=== PATIENT | female | born 1945 | race Two or more races ===

== ENCOUNTER 2022-09-03 17:03 | Inpatient (IN) | payer OTHER ==
[~2022-09-03] VITALS: Ht 162.6 cm; Wt 70.3 kg
[2022-09-03] MEDS ORDERED: RESTORIL15 MG PO (17:11)
[2022-09-03] MEDS ORDERED: ROSUVASTATIN CA10 MG PO (17:11)
[2022-09-03] MEDS ORDERED: GABAPENTIN600 MG PO (17:11)
[2022-09-03] MEDS ORDERED: SERTRALINE HCL25 MG PO (17:11)
[2022-09-03] MEDS ORDERED: LOSARTAN POTAS100 MG PO (17:11)
[2022-09-03] MEDS ORDERED: MONTELUKAST SOD10 MG PO (17:11)
[2022-09-03] MEDS ORDERED: LEVO-T25 MCG PO (17:11)
[2022-09-03] MEDS ORDERED: PEPCID AC10 MG PO (17:13)
[2022-09-03] MEDS ORDERED: PANTOPRAZOLE SO40 MG PO (17:14)
[2022-09-06] MEDS ORDERED: BREO ELLIPTA 21 EACH (14:32)
[2022-09-06] MEDS ORDERED: IBANDRONATE SO150 MG (14:32)
[2022-09-06] MEDS ORDERED: DICLOFENAC POTA50 MG (14:32)
[2022-09-06] MEDS ORDERED: TRIAMCINOLONE16.9 ML (14:33)
[2022-09-06] MEDS ORDERED: AZELASTINE137 MCG/0. (14:33)
[2022-09-06] MEDS ORDERED: METAXALONE800 MG (14:33)
[2022-09-06] MEDS ORDERED: ANASTROZOLE1 MG (14:33)
[2022-09-06] MEDS ORDERED: NAPROXEN500 MG (14:33)
[2022-09-14] MEDS ORDERED: TRAM1TAB98 PO (10:42)
== END 2022-09-14 14:22 | disposition home or self-care (01) | DRG 336 ==
LOC: ER 17:03 → SURG 09-04 00:07
PROVIDERS: Surgery; ADMIT Surgery; ATTEND Surgery
PROC: BW21YZZ Computerized Tomography (CT Scan) of Abdomen and Pelvis using Other Contrast (ICD-10-PCS; 2022-09-03)
PROC: 0D9670Z Drainage of Stomach with Drainage Device, Via Natural or Artificial Opening (ICD-10-PCS; 2022-09-04)
PROC: 05H633Z Insertion of Infusion Device into Left Subclavian Vein, Percutaneous Approach (ICD-10-PCS; 2022-09-04)
PROC: 3E0336Z Introduction of Nutritional Substance into Peripheral Vein, Percutaneous Approach (ICD-10-PCS; 2022-09-04)
PROC: 3E0F7GC Introduction of Other Therapeutic Substance into Respiratory Tract, Via Natural or Artificial Opening (ICD-10-PCS; 2022-09-04)
PROC: B246ZZZ Ultrasonography of Right and Left Heart (ICD-10-PCS; 2022-09-05)
PROC: BW21YZZ Computerized Tomography (CT Scan) of Abdomen and Pelvis using Other Contrast (ICD-10-PCS; 2022-09-06)
PROC: BW21ZZZ Computerized Tomography (CT Scan) of Abdomen and Pelvis (ICD-10-PCS; 2022-09-06)
PROC: 0WUF0JZ Supplement Abdominal Wall with Synthetic Substitute, Open Approach (ICD-10-PCS; 2022-09-07)
PROC: 0WJF4ZZ Inspection of Abdominal Wall, Percutaneous Endoscopic Approach (ICD-10-PCS; 2022-09-07)
PROC: 0KRL07Z Replacement of Left Abdomen Muscle with Autologous Tissue Substitute, Open Approach (ICD-10-PCS; 2022-09-07)
PROC: 0KRK07Z Replacement of Right Abdomen Muscle with Autologous Tissue Substitute, Open Approach (ICD-10-PCS; 2022-09-07)
PROC: 0DN80ZZ Release Small Intestine, Open Approach (ICD-10-PCS; principal; 2022-09-07 13:15)
PROC: 0DNW0ZZ Release Peritoneum, Open Approach (ICD-10-PCS; 2022-09-07 13:15)
PROC: B54NZZZ Ultrasonography of Left Upper Extremity Veins (ICD-10-PCS; 2022-09-13)
PROC: 05PYX3Z Removal of Infusion Device from Upper Vein, External Approach (ICD-10-PCS; 2022-09-13)
DX: K56.51 Intestinal adhesions [bands], with partial obstruction (principal); E87.1 Hypo-osmolality and hyponatremia; K43.0 Incisional hernia with obstruction, without gangrene; I82.622 Acute embolism and thrombosis of deep veins of left upper extremity; K91.89 Other postprocedural complications and disorders of digestive system; K56.7 Ileus, unspecified; E86.0 Dehydration; D64.89 Other specified anemias; I44.0 Atrioventricular block, first degree; J45.20 Mild intermittent asthma, uncomplicated; I11.9 Hypertensive heart disease without heart failure; E03.9 Hypothyroidism, unspecified; C50.911 Malignant neoplasm of unspecified site of right female breast; Z53.31 Laparoscopic surgical procedure converted to open procedure; Z20.822 Contact with and (suspected) exposure to COVID-19; Z92.21 Personal history of antineoplastic chemotherapy